=== PATIENT | female | born 1980 | race Caucasian/White ===

== ENCOUNTER 2020-04-18 11:20 | Outpatient (CLI) | payer BC | END 2020-04-18 11:21 | disposition home or self-care (01) | LOC: LAB 11:20 | PROVIDERS: ATTEND Obstetrics & Gynecology | DX: Z01.89 Encounter for other specified special examinations (principal); O09.521 Supervision of elderly multigravida, first trimester | CPT/HCPCS: 36415 ==

== ENCOUNTER 2020-08-02 11:38 | Outpatient (CLI) | payer BC ==
[2020-08-02 20:20] LABS: HCT - HEMATOCRIT 36.2 % (37.0-47.0); HGB - HEMOGLOBIN 12.5 g/dL (12.0-16.0); MEAN CORPUSCULAR HEMOGLOBIN 33.2 pg (27.0-31.0); MEAN CORPUSCULAR HGB CONC 34.5 g/dL (32.0-36.0); MEAN CORPUSCULAR VOLUME 96.3 fL (81.0-99.0); MEAN PLATELET VOLUME 10.7 fL (7.9-10.8); RED BLOOD COUNT 3.76 10^6/uL (4.20-5.40); RED CELL DISTRIBUTION WIDTH 12.6 % (12.0-15.0); WHITE BLOOD COUNT 7.3 x10^3/uL (4.8-10.8)
[2020-08-05 15:12] LABS: HEPATITIS C ANTIBODY NON-REACTIVE (NON-REACTIVE)
== END 2020-08-02 11:39 | disposition home or self-care (01) ==
LOC: LAB.S 11:38
PROVIDERS: ATTEND Obstetrics & Gynecology
DX: O09.90 Supervision of high risk pregnancy, unspecified, unspecified trimester (principal); Z13.21 Encounter for screening for nutritional disorder; Z36.89 Encounter for other specified antenatal screening
CPT/HCPCS: 36415; 81599; 82306; 82728; 82950; 85027; 86803

== ENCOUNTER 2020-08-07 08:13 | Outpatient (CLI) | payer BC ==
[2020-08-07 08:49] LABS: GTT GLUCOSE,FASTING 80 mg/dL (70-100)
== END 2020-08-07 08:14 | disposition home or self-care (01) ==
LOC: LAB 08:13
PROVIDERS: ATTEND Obstetrics & Gynecology
DX: O99.810 Abnormal glucose complicating pregnancy (principal)
CPT/HCPCS: 36415; 82951; 82952

== ENCOUNTER 2020-09-26 17:10 | Outpatient (CLI) | payer BC ==
--- NOTE | 2020-09-27 14:17 | Ultrasound Report ---
PROCEDURE: OB F/U or Repeat INDICATIONS: SUPERVISION OF HIGH RISK OUTSIDE/PRIOR DATING DATA: Last menstrual period (LMP): 01/12/2020. LMP-based estimated date of delivery (PEREZ): 10/18/2020. First dating scan (date and location): 03/12/2020. Estimated date of delivery (PEREZ) from first dating scan: 10/28/2020. The below data below was generated using the ultrasound PEREZ of 10/28/2020 TECHNIQUE: Real-time scanning was performed of the fetus, with image documentation and biometric measurements. COMPARISON: None available. Report from prior outside ultrasound from [facility] nter dated 05/21/2020. FINDINGS: General: A single living intrauterine gestation is present. Presentation: Vertex Placenta: Placental position is anterior, without previa. Amniotic fluid index: 14.6 cm, within normal limits for gestational age. Largest pocket measures 8.1 cm. heart rate: 157 beats per minute. Maternal cervical canal: Appears closed but is not well seen. biometrics: Biparietal diameter: 8.8 cm, 35 weeks 4 days Head circumference: 32.3 cm, 35 weeks 4 days single living intrauterine Abdominal circumference: 33.9 cm, 37 weeks 5 days Femur length: 6.4 cm, 33 weeks 1 day Estimated gestational age from initial scan: 35 weeks 3 days Composite gestational age from present scan: 35 weeks 5 days Estimated weight and percentile: 2894 g corresponding to the 73rd percentile Measurement variability in biometric dating: +/- 10 days from 12-20 weeks gestation, +/- 2 weeks from 20-30 weeks gestation, +/- 3 weeks at 30 weeks gestation or more. IMPRESSION: 1. Single living intrauterine in vertex position demonstrating appropriate interval growth with estimated weight at the 73rd percentile. Reviewed by: Car Cooley MD on 09/27/2020 2:16 PM PDT Approved by: Car Cooley MD on 09/27/2020 2:16 PM PDT Station ID: [id number]
== END 2020-09-26 17:11 | disposition home or self-care (01) ==
LOC: DI 17:10
PROVIDERS: ATTEND Obstetrics & Gynecology
DX: O09.90 Supervision of high risk pregnancy, unspecified, unspecified trimester (principal); Z3A.35 35 weeks gestation of pregnancy

== ENCOUNTER 2020-10-02 08:00 | Outpatient (CLI) | payer BC | END 2020-10-02 23:59 | disposition home or self-care (01) | LOC: LAB.WC 08:00 | PROVIDERS: ATTEND Obstetrics & Gynecology | DX: O09.90 Supervision of high risk pregnancy, unspecified, unspecified trimester (principal); Z36.85 Encounter for antenatal screening for Streptococcus B | CPT/HCPCS: 87797 ==

== ENCOUNTER 2020-10-21 21:47 | Inpatient (IN) | payer BC ==
[2020-10-21] MEDS ORDERED: SODIUM CHLORIDE FLUSH 0.9% 10 ML SYRINGE IVP PRN (21:53)
[2020-10-21] MEDS ORDERED: OXYTOCIN 10 UNIT/ML VIAL IM PRN (21:53)
[2020-10-21] MEDS ORDERED: fentaNYL 100 MCG/2 ML VIAL IVP PRN (21:53)
[2020-10-21] MEDS ORDERED: miSOPROStoL 200 MCG TABLET BC PRN (21:53)
[2020-10-21] MEDS ORDERED: LIDOCAINE-MPF 1% 30 ML VIAL ID PRN (21:53)
[2020-10-21] MEDS ORDERED: METHYLERGONOVINE 0.2 MG/ML VIAL IM PRN (21:53)
[2020-10-21] MEDS ORDERED: TRANEXAMIC ACID IN NACL 1,000 MG/100 ML BAG IV PRN (21:53)
[2020-10-21] MEDS ORDERED: CARBOPROST TROMETHAMINE 250 MCG/ML AMP IM PRN (21:53)
[2020-10-21] MEDS ORDERED: OXYTOCIN 10 UNIT/ML VIAL ONE (21:59)
[2020-10-21] MEDS ORDERED: LACTATED RINGERS 1,000 ML IV SCH ×2 (22:00→23:45)
[2020-10-21] MEDS ORDERED: OXYTOCIN/SODIUM CHLORIDE 500 ML IV ONE (22:00)
[2020-10-21 22:05] LABS: BASOPHILS % (AUTO) 0.6 %; EOSINOPHILS % (AUTO) 12.9 %; HCT - HEMATOCRIT 38.2 % (37.0-47.0); HGB - HEMOGLOBIN 13.3 g/dL (12.0-16.0); LYMPHOCYTES % (AUTO) 31.8 %; MEAN CORPUSCULAR HEMOGLOBIN 31.4 pg (27.0-31.0); MEAN CORPUSCULAR HGB CONC 34.8 g/dL (32.0-36.0); MEAN CORPUSCULAR VOLUME 90.3 fL (81.0-99.0); MEAN PLATELET VOLUME 11.4 fL (7.9-10.8); MONOCYTES % (AUTO) 7.7 %; NEUTROPHILS % (AUTO) 46.3 %; PLT - PLATELET COUNT 165 10^3/uL (130-450); RED BLOOD COUNT 4.23 10^6/uL (4.20-5.40); RED CELL DISTRIBUTION WIDTH 12.3 % (12.0-15.0); WHITE BLOOD COUNT 8.4 x10^3/uL (4.8-10.8)
[2020-10-21] MEDS ORDERED: AMPICILLIN 2 GM VIAL IV ONE (22:09)
[2020-10-21 22:10] LABS: SLIDE REVIEW? Indicated
[2020-10-21] MEDS: AMPICILLIN 2 GM in SODIUM CHLORIDE 0.9% MINIBAG 100 ML IV SCH (22:10)
[2020-10-21 22:11] LABS: ABNORMAL LYMPHS % (MANUAL) 0 %; BAND NEUTROPHILS % (MANUAL) 0 %
[2020-10-21] MEDS ORDERED: ROPIVACAINE 0.2% 200 MG/100 ML BAG EP ONE (22:24)
[2020-10-21 22:27] LABS: LYMPHOCYTES # (MANUAL) 2.3 10^3/uL (1.5-3.5); LYMPHOCYTES % (MANUAL) 27 %; MONOCYTES # (MANUAL) 0.6 10^3/uL (0.0-1.0); NEUTROPHILS # (MANUAL) 5.5 10^3/uL (1.5-6.6)
--- NOTE | 2020-10-21 22:27 | HISTORY & PHYSICAL EXAMINATION ---
History and Physical - History and Physical Identification: Patient is a 40-year-old she is G2, P1 her EDC is 28 October this makes her 39 weeks EGA Chief complaint: contractions History of present illness: patient states that roughly 1730 she developed strong uterine contractions. These progressively worse with time. She denies rupture of membranes did have a little bit of a bloody show. These are occurring at roughly 2-1/2-minute intervals. [facility]. Her course has been unremarkable with the exception of a 50 g Glucola which was 140 her 3-hour gtt. was 80/199/153/89. She is noted to be a positive rubella immune as well as group B strep positive.Regular visits and has not showed evidence of any hypertension during this . Past medical history is positive forNormal Pap smears PCOS. Surgical history: Colposcopy Allergies: None Current medications are those of vitamins as well as Lexapro. Social history patient works as [employer] in [employer]. Family history unremarkable Physical examination well-developed well-nourished female she is complaining of active labor at this time. Heart: Regular rate and rhythm Lungs: Clear without rales or wheezes Abdomen is gravid nontender intermittently going through contractions Cervical examination shows to be completely dilated completely effaced with a very bulging bag head is about a 0 station. Patient specifically requested not being ruptured as she would like to have an epidural if at all possible. Impression number one 40-year-old female at 39 weeks in active labor. History of group B strep positive Plan we will administer ampicillin. We will also obtain an epidural if at all possible. We will also as a expected vaginal delivery.
[2020-10-21 22:28] LABS: DIFFERENTIAL COMMENT MANUAL DIFFERENTIAL; PLATELET ESTIMATE, MANUAL NORMAL (130-450,000) (NORMAL); PLATELET MORPHOLOGY NORMAL APPEARANCE (NORMAL); RBC MORPHOLOGY (MULTIPLE) NORMAL APPEARANCE (NORMAL)
--- NOTE | 2020-10-21 22:46 | ANESTHESIA ---
Pre-Anesthesia VS, & Labs - Diagnosis active labor - Procedure labor epidural Vital Signs: Temp Pulse Resp BP Pulse Ox 97.7 C H 10/21/20 21:53 Height: 5 ft 6 in Weight (kg): 79.832 kg Body Mass Index: 28.4 BMI Classification: Overweight - NPO Other (not NPO) - Is Patient ?: Yes - Lab Results Current Lab Results: Laboratory Tests 10/21/20 21:55: Blood Type A POSITIVE, Antibody Screen NEGATIVE 10/21/20 21:50: WBC 8.4, RBC 4.23, Hgb 13.3, Hct 38.2, MCV 90.3, MCH 31.4 H, MCHC 34.8, RDW 12.3, Plt Count 165, MPV 11.4 H, Neut # (Auto) ROUTE SALESMAN [employer]IVER, Lymph # (Auto) ROU[employer] SALESMAN [employer]IVER, [place] # (Auto) ROUTE SALESMAN [employer]IVER, Eos # (Auto) ROUTE SALESM[employer]IVER, Baso # (Auto) ROUTE SALESM[employer]IVER, Absolute Nucleated RBC [employer], Total Counted 100, Band Neuts % (Manual) 0, Abnorm Lymph % (Manual) 0, Nucleated RBC % R[employer]TE SAL[employer], Neutrophils # (Manual) 5.5, Lymphocytes # (Manual) 2.3, Monocytes # (Manual) 0.6, Eosinophils # (Manual) 0.0, Basophils # (Manual) 0.0, Differential Comment MANUAL DIFFERENTIAL, Manual Slide Review Indicated, Platelet Estimate NORMAL (130-450,000), Platelet Morphology NORMAL APPEARANCE, RBC Morph Micro Appear NORMAL APPEARANCE Fish Bones: 10/21/20 21:50 Home Medications and Allergies Active Medications Carboprost Tromethamine (Carboprost Tromethamine 250 Mcg/Ml Amp) 250 mcg IM Q15M PRN PRN Reason: Step 4: Hemorrhage protocol Stop: 10/26/20 21:54 Fentanyl (Fentanyl 100 Mcg/2 Ml Vial) 50 mcg IVP Q1H PRN PRN Reason: PAIN Oxytocin/Sodium Chloride (Pitocin/Sodium Chloride) 500 mls @ 999 mls/hr IV PRN PRN; Protocol PRN Reason: POST- HEMORR PREVENTION Stop: 10/26/20 21:54 Tranexamic Acid (Tranexamic 1,000 Mg/100ml-Nacl) 1,000 mg in 100 mls @ 600 mls/hr IV .ONCE PRN PRN Reason: EBL >1200mL and within 3hr Stop: 10/26/20 21:54 Lactated Ringer's (Lr) 1,000 mls @ 150 mls/hr IV .Q6H40M [facility] Last Admin: 10/21/20 22:10 Dose: 150 mls/hr Documented by: Ampicillin Sodium 2 gm/ Sodium (Chloride) 100 mls @ 100 mls/hr IV Q6HR [facility] Last Admin: 10/21/20 22:10 Dose: 100 mls/hr Documented by: Lidocaine HCl (Lidocaine-Mpf 1% 30 Ml Vial) 30 ml ID .ONCE PRN PRN Reason: PERINEAL REPAIR Stop: 10/26/20 21:54 Methylergonovine Maleate (Methylergonovine 0.2 Mg/Ml Vial) 0.2 mg IM .ONCE PRN PRN Reason: Step 2: Hemorrhage protocol Stop: 10/26/20 21:54 Misoprostol (Misoprostol 200 Mcg Tablet) 800 mcg BC .ONCE PRN PRN Reason: Step 3: Hemorrhage protocol Stop: 10/26/20 21:54 Oxytocin (Oxytocin 10 Unit/Ml Vial) 10 unit IM .ONCE PRN PRN Reason: Step one: If no IV access Stop: 10/26/20 21:54 Sodium Chloride (Sodium Chloride Flush 0.9% 10 Ml Syringe) 10 ml IVP PRN PRN PRN Reason: NEEDED PER PROVIDER ORDERS Sodium Chloride (Sodium Chloride Flush 0.9% 10 Ml Syringe) 10 ml IVP 0100,0900,1700 [facility] Anes History & Medical History - Anesthetic History Anesthesia Complications: reports: No previous complications Family history of Anesthesia Complications: Denies Family history of Malignant Hyperthermia: Denies - Medical History Smoking Status: Never smoker Exam General: Alert, Oriented x3, Cooperative Dental: WNL Mouth Openin Fingerbreadth Neck Mobility: Normal Mallampati classification: I Thyromental Distance: 4-6 cm Plan Anesthesia Type: Epidural Consent for Procedure(s) Verified and Reviewed: Yes Code Status: Attempt Resuscitation ASA classification: 2-Mild systemic disease Is this case an emergency?: No
[2020-10-21] MEDS: OXYTOCIN/SODIUM CHLORIDE 500 ML IV PRN (23:15)
--- NOTE | 2020-10-21 23:22 | DELIVERY NOTE ---
Delivery Note - Labor Labor: positive: Spontaneous - Delivery Method Delivery Method: positive: Spontaneous vaginal delivery - Presentation Presentation: positive: Vertex, NEETA - left occiput anterior - Nuchal Cord Nuchal Cord: positive: None - Anesthetic Anesthetic Type: - Amniotic Fluid Description Amniotic Fluid Description: positive: Clear (SECOND STAGE MEC) - Episiotomy Type Episiotomy Type: positive: None - Laceration Laceration: positive: 1st degree, Labial (There up near the labia 8 mm) - Delivery Outcome Delivery Outcome: positive: Livebirth - : positive: Placed in direct skin contact with mother, Suctioned, Stimulated, Warmed Carbon sex: positive: Female - Cord Cord: positive: 3 vessels - Placenta Placenta: positive: Intact, Spontaneous - Delivery Comments (Free Text/Narrative) Delivery Comments (Free Text/Narrative): Upon arrival to labor and delivery patient was noted to be roughly 8 to 9 cm. She reached complete very soon thereafter. She was very insistent on having an epidural. So the membranes were not ruptured. She spontaneously ruptured at 2024 clear amniotic fluid was seen. Prior to this she received 2 g of ampicillin IV. At this point she was having an epidural placed but was noted to be bearing down and the head was noted to be on the perineum. The epidural was ceased. She started pushing at 2229 and at 2237 delivered a live female infant Apgars 8 and 9 left occiput anterior. The placenta followed at 2250 was inspected and noted to be intact. This was augmented with Pitocin. The perineum was inspected with the small left labial laceration noted patient declined a repair. There was some difficulty with the uterus alma down and since the IV at this point was not working well. She received 10 units of Pitocin in the right thigh. The uterus still had problems with bleeding so she received 0.2 mg of Methergine in the left thigh. The bleeding at this point stopped and the IV started to function well. The perineum was inspected with the aforementioned findings. At this point there is no evidence of an active bleeding. Sponge and needle counts were correct. Patient and baby tolerated delivery well.
[2020-10-21] MEDS ORDERED: WITCH HAZEL/GLYCERIN 1 PAD TOP PRN (23:26)
[2020-10-21] MEDS ORDERED: HYDROCORTISONE 1% CREAM 28 GM TUBE PR PRN (23:26)
[2020-10-21] MEDS ORDERED: oxyCODONE 5 MG TABLET PO PRN (23:26)
[2020-10-21] MEDS ORDERED: diphenhydrAMINE 25 MG CAPSULE PO PRN (23:26)
[2020-10-21] MEDS ORDERED: ONDANSETRON 4 MG/2 ML VIAL IVP PRN (23:26)
[2020-10-21] MEDS: ACETAMINOPHEN 500 MG TABLET PO SCH (23:44)
[2020-10-22] MEDS ORDERED: AMPICILLIN 2 GM in SODIUM CHLORIDE 0.9% MINIBAG 100 ML IV SCH ×2
[2020-10-22] MEDS: OXYTOCIN/SODIUM CHLORIDE 500 ML IV PRN (00:28)
[2020-10-22] MEDS: DOCUSATE SODIUM 100 MG CAPSULE PO SCH ×2 (09:05→22:48)
--- NOTE | 2020-10-22 09:57 | PROVIDER PROGRESS NOTE ---
Subjective - Prog Note Date Prog Note Date: 10/22/20 Prog Note Time: 09:55 - Subjective Pt reports feeling: Improved (Pain 05/22. Pt notes good pain control. Breast feeding.) Objective - Vital Signs/Intake & Output Reviewed Vital Signs: Yes Vital Signs: Vital Signs x48h Temp Pulse Resp BP Pulse Ox 10/22/20 09:05 36.6 C 45 L 18 119/76 100 10/22/20 02:00 36.9 C 64 16 120/65 100 Intake & Output: Intake & Output 10/19/20 10/20/20 10/21/20 10/22/20 23:59 23:59 23:59 23:59 Intake Total 100 1500 Output Total 950 Balance 100 550 - Objective General Appearance: positive: No acute distress, Alert Abdomen: positive: Non-tender, Mass (U-2) Extremities: negative: Calf tenderness, Krzysztof's sign/cords - Lab Results Fish Bones: 10/21/20 21:50 Other Labs: Lab Results x24hrs 10/21/20 10/21/20 10/21/20 Range/Units 21:55 21:50 21:50 WBC 8.4 (4.8-10.8) x10^3/uL RBC 4.23 (4.20-5.40) 10^6/uL Hgb 13.3 (12.0-16.0) g/dL Hct 38.2 (37.0-47.0) % MCV 90.3 (81.0-99.0) fL MCH 31.4 H (27.0-31.0) pg MCHC 34.8 (32.0-36.0) g/dL RDW 12.3 (12.0-15.0) % Plt Count 165 (130-450) 10^3/uL MPV 11.4 H (7.9-10.8) fL Neut # (Auto) SALES EXEC Lymph # (Auto) SALES EXEC [place] # (Auto) SALES EXEC Eos # (Auto) SALES EXEC Baso # (Auto) SALES EXEC Absolute Nucleated RBC SALES EXEC Total Counted 100 Band Neuts % (Manual) 0 (0 - 10) % Abnorm Lymph % (Manual) 0 % Nucleated RBC % SALES EXEC Neutrophils # (Manual) 5.5 (1.5-6.6) 10^3/uL Lymphocytes # (Manual) 2.3 (1.5-3.5) 10^3/uL Monocytes # (Manual) 0.6 (0.0-1.0) 10^3/uL Eosinophils # (Manual) 0.0 (0-0.7) 10^3/uL Basophils # (Manual) 0.0 (0-0.1) 10^3/uL Differential Comment MANUAL DIFFERENTIAL Manual Slide Review Indicated Platelet Estimate NORMAL (130-450,000) (NORMAL) Platelet Morphology NORMAL APPEARANCE (NORMAL) RBC Morph Micro Appear NORMAL APPEARANCE (NORMAL) Blood Type A POSITIVE Blood Type Recheck A POSITIVE Antibody Screen NEGATIVE Assessment/Plan - Problem List (1) (spontaneous vaginal delivery) Impression: recovering well.
[2020-10-22] MEDS: IBUPROFEN 800 MG TABLET PO SCH (19:56)
[2020-10-22] MEDS: AMPICILLIN 2 GM in SODIUM CHLORIDE 0.9% MINIBAG 100 ML IV SCH ×2 (19:57→19:58)
[2020-10-22] MEDS: ACETAMINOPHEN 500 MG TABLET PO SCH (20:01)
--- NOTE | 2020-10-23 05:26 | PROVIDER PROGRESS NOTE ---
Subjective - Prog Note Date Prog Note Date: 10/23/20 Prog Note Time: 05:24 - Subjective Subjective: Patient overall has been doing well. Up and ambulating, tolerating po, pain well managed. Having some anxiety surrounding GBS status/observation. Objective - Vital Signs/Intake & Output Reviewed Vital Signs: Yes Vital Signs: Vital Signs x48h Temp Pulse Resp BP Pulse Ox 10/23/20 03:22 98.4 F 55 L 19 124/74 100 10/22/20 22:45 98.2 F 72 18 109/68 99 Intake & Output: Intake & Output 10/20/20 10/21/20 10/22/20 10/23/20 23:59 23:59 23:59 23:59 Intake Total 100 2060 240 Output Total 950 Balance 100 1110 240 - Objective General Appearance: positive: No acute distress Respiratory: positive: No respiratory distress Cardiovascular: positive: Other (RR) Neurologic/Psychiatric: positive: Oriented x3 - Lab Results Fish Bones: 10/21/20 21:50 Other Labs: Lab Results x24hrs 10/21/20 Range/Units 21:50 Blood Type Recheck A POSITIVE Assessment/Plan - Problem List (1) (spontaneous vaginal delivery) Impression: PPD#2: Late delivery on 10/21/20 -Doing well -Inpatient for 48 hours of infant observation -Struggling a little with anxiety this am -Will revisit later this am
[2020-10-23] MEDS: IBUPROFEN 800 MG TABLET PO SCH ×6 (09:07→18:56)
[2020-10-23] MEDS: DOCUSATE SODIUM 100 MG CAPSULE PO SCH (09:08)
[2020-10-23] MEDS: ACETAMINOPHEN 500 MG TABLET PO SCH ×2 (18:54→18:55)
[2020-10-23] MEDS: SODIUM CHLORIDE FLUSH 0.9% 10 ML SYRINGE IVP SCH ×2 (18:57→18:58)
[2020-10-24] MEDS: DOCUSATE SODIUM 100 MG CAPSULE PO SCH (07:16)
[2020-10-24] MEDS: IBUPROFEN 800 MG TABLET PO SCH (07:16)
[2020-10-24 09:31] VITALS: BP 117/73
[2020-10-24] MEDS: ACETAMINOPHEN 500 MG TABLET PO SCH (10:47)
--- NOTE | 2020-10-24 10:50 | Discharge Plan ---
Discharge Plan Problem Reviewed?: Yes Disposition: Home, Self Care Condition: Good Prescriptions: Acetaminophen [Acetaminophen Extra Strength] 1,000 mg PO Q8H PRN #60 tablet PRN Reason: Pain Docusate Sodium 100Mg Capsule [Colace 100Mg Capsule] 100 - 200 mg PO BID PRN #60 cap PRN Reason: Constipation Ibuprofen [Motrin] 600 mg PO Q6H PRN #60 tab PRN Reason: Pain Diet: Regular Activity Restrictions: Additional Comments (Nothing in the vagina for 6 weeks: No intercourse, tampons, douching Call for: -Fever greater than 100.5 - Pain that does not improve with pain medication -Heavy bleeding in which you are soaking a pad an hour for 2 hours in a row No tub baths or hot tubs for 4 weeks) Additional Instructions or Follow Up instructions: Ibuprofen 600 mg by mouth every 6 hours as needed for pain Acetaminophen 500-1000 mg by mouth every 8 hours as needed for pain Docusate 100-200 mg by mouth twice a day as needed for constipation No Smoking: If you smoke, Please STOP! Call for help. Follow-up with: Irena Bernard MD [Provider Admit Priv/Credential] -
--- NOTE | 2020-10-24 10:51 | DISCHARGE SUMMARY ---
Discharge Summary Admit Date: 10/21/20 Discharge Date: 10/24/20 Discharging Provider: Marco Antonio Condition at Discharge: Good Discharge Disposition: 01 Home, Self Care - DIAGNOSES Admission Diagnoses: IUP at 39+0 wga GBs positive Labor Discharge Diagnoses with Status of Each Condition: Same and delivery of term gestation. - HPI History of Present Illness: Patient is a 40-year-old G2, P1 with PEREZ 28 October admitted at 39 weeks EGA in advanced labor. Started contractions at roughly 1730. Denied rupture of membranes did have a little bit of a bloody show. Her course has been unremarkable with the exception of a 50 g Glucola which was 140 her 3-hour gtt. was 80/199/153/89. She is noted to be a positive rubella immune as well as group B strep positive. Regular visits and has not showed evidence of any hypertension during this . - HOSPITAL COURSE Hospital Course: Patient was admitted in labor at 39 wga. Initial SVE was 8-9 cm/complete/BBOW. Prior to this she received 2 g of ampicillin IV 2g IV administered at admit for GBS prophylaxis. Desired epidural. During placements, she had spontaneous rupture of membranes at 2024; clear amniotic fluid was seen. The epidural was not completed as started to deliver. She started pushing at 2230 and at 2238 delivered a live female Apgars 8 and 9 form left occiput anterior position. The placenta followed at 2251 was inspected and noted to be intact. The perineum was inspected with the small left labial laceration noted patient declined a repair. There was some difficulty with the uterus alma down and since the IV at this point was not working well. She received 10 units of Pitocin in the right thigh. The uterus still had problems with bleeding so she received 0.2 mg of Methergine in the left thigh. The bleeding at this point stopped and the IV started to function well. Good hemostasis noted. Sponge and needle counts were correct. Patient and baby tolerated delivery well. course was uncomplicated. Infant required 48 hours of observation given GBS status. Given late pm delivery, patient and baby were discharged on PPD#3. Routine discharge instructions were given. Rh positive. - ALLERGIES Allergies/Adverse Reactions: Allergies Allergy/AdvReac Type Severity Reaction Status Date / Time No Known Drug Allergies Allergy Verified 10/21/20 23:21 - MEDICATIONS Home Medications: Ambulatory Orders Medication Instructions Recorded Confirmed Acetaminophen [Acetaminophen Extra 1,000 mg PO Q8H PRN #60 tablet 10/23/20 Strength] Docusate Sodium 100Mg Capsule 100 - 200 mg PO BID PRN #60 cap 10/23/20 [Colace 100Mg Capsule] Ibuprofen [Motrin] 600 mg PO Q6H PRN #60 tab 10/23/20 - PHYSICAL EXAM AT DISCHARGE General Appearance: positive: No acute distress Eyes Bilateral: positive: Normal inspection Neck: positive: Nml inspection Respiratory: positive: No respiratory distress Cardiovascular: positive: Other (RR) Abdomen: positive: Non-tender, No distention, Other (FF belowumbi) Skin: positive: Color nml, No rash, Warm, Dry Extremities: positive: Non-tender, No pedal edema Neurologic/Psychiatric: positive: Oriented x3 - LABS Result Diagrams: 10/21/20 21:50 - FOLLOW UP Follow Up: [address] Bernard - TIME SPENT Time Spent in Discharge (Minutes): 30
== END 2020-10-24 11:45 | disposition home or self-care (01) | DRG 807 ==
LOC: WFO 21:47 → FBP 21:50 → WFO 21:52 → FBP 21:53
PROVIDERS: ADMIT Obstetrics & Gynecology; ATTEND Obstetrics & Gynecology
PROC: 10E0XZZ Delivery of Products of Conception, External Approach (ICD-10-PCS; principal; 2020-10-21)
DX: O99.824 Streptococcus B carrier state complicating childbirth (principal); Z37.0 Single live birth; O70.0 First degree perineal laceration during delivery; O72.0 Third-stage hemorrhage; Z3A.39 39 weeks gestation of pregnancy; O99.345 Other mental disorders complicating the puerperium; F41.9 Anxiety disorder, unspecified
CPT/HCPCS: 36415; 85025; 86850; 86900; 86901; A9270; J2210; J7120

== ENCOUNTER 2021-02-12 15:32 | Emergency (ER) | payer BC ==
[2021-02-12 15:56] VITALS: BP 126/90
--- NOTE | 2021-02-12 16:22 | ED Physician Documentation ---
PD HPI MHE - Stated complaint Stated Complaint: PSYCHOSIS - Chief complaint Chief Complaint: MHE - History obtained from History obtained from: Patient - History of Present Illness Primary symptom: No: Suicidal ideation, Suicide attempt, Self harm - cut, Self harm - OD, Self harm - other, Homicidal ideation, Psychosis, Depression, Manic, Anxiety, Aggressive behavior Pain level max: 0 Pain level now: 0 Contributing factors: No: Family, Sig other, Work, School, Money, Legal, Substance abuse - ETOH, Substance abuse - drugs, Off meds - Additional information Additional information: Patient is a 40-year-old female who presents to the emergency department stating that she was talking to a therapist today who told her to come to the emergency department to "get medication for the manic phase". They also told her to tell us that she has psychosis. The patient states she is not homicidal or suicidal. She states she does not have any auditory or visual hallucinations. 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 She does not have a primary care provider or psychiatrist. She does not want to be hospitalized. Review of Systems Ten Systems: 10 systems reviewed and negative Constitutional: denies: Fever, Chills Ears: denies: Ear pain Nose: denies: Rhinorrhea / runny nose, Congestion Throat: denies: Sore throat Cardiac: denies: Chest pain / pressure Respiratory: denies: Dyspnea, Cough GI: denies: Abdominal Pain, Nausea, Vomiting, Diarrhea : denies: Now EGA Skin: denies: Rash Musculoskeletal: denies: Neck pain, Back pain Neurologic: denies: Headache Psychiatric: denies: Depressed, Suicidal, Homicidal, Hallucinations, Delusions, Anxiety, Insomnia PD PAST MEDICAL HISTORY - Past Medical History Past Medical History: Yes Psych: Bipolar disorder - Past Surgical History Past Surgical History: No - Present Medications Home Medications: Ambulatory Orders Medication Instructions Recorded Confirmed No Known Home Medications 02/12/21 02/12/21 - Allergies Allergies/Adverse Reactions: Allergies Allergy/AdvReac Type Severity Reaction Status Date / Time No Known Drug Allergies Allergy Verified 02/12/21 15:56 - Social History Does the pt smoke?: No Smoking Status: Never smoker PD ED PE NORMAL - Vitals Vital signs reviewed: Yes - General General: Alert and oriented X 3, No acute distress, Well developed/nourished - HEENT HEENT: Atraumatic, PERRL, Moist mucous membranes - Neck Neck: Supple, no meningeal sign - Cardiac Cardiac: RRR, Strong equal pulses - Respiratory Respiratory: No respiratory distress, Clear bilaterally - Abdomen Abdomen: Soft, Non tender, Non distended - Derm Derm: Warm and dry - Extremities Extremities: No edema - Neuro Neuro: Alert and oriented X 3 - Psych Psych: Normal mood, Normal affect Results - Vitals Vitals: Vital Signs - 24 hr 02/12/21 15:52 Temperature 36.4 C L Heart Rate 86 Respiratory 16 Rate Blood Pressure 126/90 H O2 Saturation 100 Oxygen O2 Source Room air PD MEDICAL DECISION MAKING - ED course Complexity details: considered differential, d/w patient ED course: Social work was consulted. Resources given to the patient. She is not acutely psychotic. Does not meet criteria for inpatient admission. Patient does not want to be admitted. We will have her follow-up with a local psychiatrist for further care and potential medication. Patient counseled regarding signs and symptoms for which I believe and urgent re-evaluation would be necessary. Patient with good understanding of and agreement to plan and is comfortable going home at this time This document was made in part using voice recognition software. While efforts are made to proofread this document, sound alike and grammatical errors may occur. Departure - Departure Disposition: 01 Home, Self Care Clinical Impression: Bipolar 1 disorder Condition: Good Instructions: ED Manic Depression Follow-Up: Irena Bernard MD [Provider Admit Priv/Credential] - [facility] [Provider Group] Comments: Please follow-up as directed by social work today. It is important that you discuss with your doctor medications for bipolar disorder. They may want to change you to a mood stabilizer such as Depakote. This may require a tapering of your current medications in order to exchange administrator to a new medication. Crisis Line and is available to talk to someone [email or web address] is also available to chat with someone online if you prefer. There are also many resources on this website and apps for your phone to help with your mental health You can also text the word START to [phone] to chat with someome via text. Discharge Date/Time: 02/12/21 17:57
== END 2021-02-12 17:57 | disposition home or self-care (01) ==
LOC: ED 15:32
DX: F31.10 Bipolar disorder, current episode manic without psychotic features, unspecified (principal)
CPT/HCPCS: 99282; 99283

== ENCOUNTER 2021-08-01 09:53 | Outpatient (CLI) | payer BC ==
[2021-08-01 15:30] LABS: T4 (THYROXINE) 6.95 ug/dL (6.09-12.23)
[2021-08-01 15:33] LABS: THYROID STIMULATING HORMONE 1.01 uIU/mL (0.34-5.60)
[2021-08-01 15:35] LABS: FREE T3 2.88 pg/mL (2.5-3.9); FREE T4 (FREE THYROXINE) 0.98 ng/dL (0.58-1.64)
== END 2021-08-01 09:54 | disposition home or self-care (01) ==
LOC: LAB.S 09:53
PROVIDERS: ATTEND Registered Nurse
DX: F31.32 Bipolar disorder, current episode depressed, moderate (principal); F31.73 Bipolar disorder, in partial remission, most recent episode manic; F53.0 Postpartum depression
CPT/HCPCS: 36415; 84436; 84439; 84443; 84480; 84481; 84482

== ENCOUNTER 2021-08-11 12:17 | Outpatient (CLI) | payer BC ==
[2021-08-11 15:23] LABS: T4 (THYROXINE) 5.31 ug/dL (6.09-12.23)
[2021-08-11 15:25] LABS: THYROID STIMULATING HORMONE 0.8 uIU/mL (0.34-5.60)
[2021-08-11 15:27] LABS: FREE T3 3.07 pg/mL (2.5-3.9)
[2021-08-11 15:32] LABS: FERRITIN 26.9 ng/mL (11.0-306.8)
[2021-08-11 15:34] LABS: ALBUMIN 4.5 g/dL (3.2-5.5); ALBUMIN/GLOBULIN RATIO 1.8 (1.0-2.2); BILIRUBIN,TOTAL 2.3 mg/dL (0.2-1.0); CREATININE 0.7 mg/dL (0.4-1.0); POTASSIUM 3.9 mmol/L (3.5-5.0)
[2021-08-11 23:08] LABS: THYROID PEROXIDASE (TPO) AB <8 IU/mL (0-34)
[2021-08-12 07:07] LABS: HOMOCYST(E)INE 6.5 umol/L (0.0-14.5)
[2021-08-13 19:07] LABS: THYROGLOBULIN ANTIBODY <1.0 IU/mL (0.0-0.9)
== END 2021-08-11 12:18 | disposition home or self-care (01) ==
LOC: LAB.S 12:17
PROVIDERS: ATTEND Registered Nurse
DX: F31.32 Bipolar disorder, current episode depressed, moderate (principal); F53.0 Postpartum depression
CPT/HCPCS: 36415; 80053; 81291; 81599; 82728; 83090; 83540; 84436; 84443; 84466; 84480; 84481; 86376; 86800

== ENCOUNTER 2022-02-13 10:42 | Outpatient (CLI) | payer BC ==
[2022-02-13 15:29] LABS: ALBUMIN 4.4 g/dL (3.2-5.5); BILIRUBIN,TOTAL 1.7 mg/dL (0.2-1.0); CALCIUM 9.3 mg/dL (8.5-10.3); CREATININE 0.9 mg/dL (0.4-1.0); POTASSIUM 4.1 mmol/L (3.5-5.0); TOTAL PROTEIN 6.6 g/dL (6.7-8.2)
[2022-02-13 15:44] LABS: THYROID STIMULATING HORMONE 0.81 uIU/mL (0.34-5.60)
[2022-02-13 15:46] LABS: FREE T3 3.05 pg/mL (2.5-3.9)
[2022-02-13 15:49] LABS: FREE T4 (FREE THYROXINE) 0.86 ng/dL (0.58-1.64)
[2022-02-13 15:51] LABS: FERRITIN 34.5 ng/mL (11.0-306.8)
== END 2022-02-13 10:43 | disposition home or self-care (01) ==
LOC: LAB.S 10:42
PROVIDERS: ATTEND Registered Nurse
DX: F31.32 Bipolar disorder, current episode depressed, moderate (principal)
CPT/HCPCS: 36415; 80053; 82728; 84439; 84443; 84481

== ENCOUNTER 2022-05-07 11:34 | Outpatient (CLI) | payer BC ==
[2022-05-07 15:22] LABS: ALBUMIN 3.9 g/dL (3.2-5.5); ALBUMIN/GLOBULIN RATIO 1.6 (1.0-2.2); BILIRUBIN,TOTAL 2.1 mg/dL (0.2-1.0); CALCIUM 8.9 mg/dL (8.5-10.3); CREATININE 1.1 mg/dL (0.4-1.0); POTASSIUM 4.2 mmol/L (3.5-5.0); TOTAL PROTEIN 6.4 g/dL (6.7-8.2)
== END 2022-05-07 11:35 | disposition home or self-care (01) ==
LOC: LAB.S 11:34
PROVIDERS: ATTEND Registered Nurse
DX: F31.32 Bipolar disorder, current episode depressed, moderate (principal)
CPT/HCPCS: 36415; 80053; 82728

== ENCOUNTER 2022-06-16 12:45 | Outpatient (CLI) | payer BC ==
[2022-06-16 15:09] LABS: ALBUMIN 4.4 g/dL (3.2-5.5); ALBUMIN/GLOBULIN RATIO 1.8 (1.0-2.2); BILIRUBIN,TOTAL 1.2 mg/dL (0.2-1.0); CALCIUM 9.1 mg/dL (8.5-10.3); CREATININE 0.9 mg/dL (0.4-1.0); POTASSIUM 4.1 mmol/L (3.5-5.0); TOTAL PROTEIN 6.8 g/dL (6.7-8.2)
== END 2022-06-16 12:46 | disposition home or self-care (01) ==
LOC: LAB.S 12:45
PROVIDERS: ATTEND Registered Nurse
DX: F31.32 Bipolar disorder, current episode depressed, moderate (principal); F31.73 Bipolar disorder, in partial remission, most recent episode manic; F53.0 Postpartum depression
CPT/HCPCS: 36415; 80053

== ENCOUNTER 2022-08-17 09:29 | Outpatient (CLI) | payer BC ==
[~2022-08-17 09:29] MED LIST: GADOBUTROL 7.5 MMOL/7.5 ML VIAL ONE
--- NOTE | 2022-08-17 13:11 | MRI Report ---
PROCEDURE: ANGIO HEAD WO INDICATIONS: HEADACHE, MIGRAINE TECHNIQUE: Noncontrast axial 3-D [id number] MR angiogram, with 3-dimensional maximum intensity projection (M IP) reformats of the internal carotid arteries and posterior circulation then performed. COMPARISON: Correlation is made with the accompanying brain MRI. FINDINGS: Image quality: Diagnostic. Anterior circulation: Intracranial internal carotid arteries demonstrate normal size and intralumina l flow signal. The flow within the paired anterior cerebral arteries is normal and symmetric. The f low within the middle cerebral arteries is normal and symmetric. The anterior communicating artery i s seen. No stenoses, occlusions, or aneurysms. Posterior circulation: Visualized portions of the vertebral arteries demonstrate normal caliber, and join to form a normal appearing basilar artery. The flow within the posterior cerebral arteries is normal and symmetric. No stenoses, occlusions, or aneurysms. The included venous radiology transporter images are within normal limits. IMPRESSION: Normal brain MR angiogram. No aneurysms. Reviewed by: Timothy Moreno MD on 08/17/2022 12:10 PM [facility] Approved by: Timothy Moreno MD on 08/17/2022 12:10 PM [facility] Station ID: [id number]
--- NOTE | 2022-08-17 13:12 | MRI Report ---
PROCEDURE: BRAIN W/WO INDICATIONS: HEADACHE, MIGRAINE CONTRAST: gadavist 6.4ml TECHNIQUE: Noncontrast axial T1 spin echo, axial T2 fast spin echo, sagittal and axial FLAIR, coronal T2 fast sp in echo, axial gradient echo, axial diffusion and ADC through the brain. After the administration of contrast, axial and coronal T1 spin echo with fat saturation through the brain. COMPARISON: Correlation is made with the accompanying brain MR angiogram. FINDINGS: Image quality: Diagnostic. CSF spaces: Basal cisterns are patent. No extra-axial fluid collections. Ventricles are normal in size and shape. Brain: No midline shift. No intracranial bleeds or masses. No abnormal intracranial enhancement. There is cerebral volume loss for age. There is periventricular white matter chronic small vessel is chemic change. The brainstem appears normal. Diffusion-weighted images demonstrate no acute ischemi c insults. No chronic ischemic insults. Normal intravascular flow voids are present. Skull and face: Calvarial marrow is normal in signal. Orbits appear normal. Sinuses: Moderate mucosal thickening can be seen within the maxillary sinuses and the sphenoid sinuse s. Mild mucosal thickening is seen within the ethmoid air cells. There is a mild amount of fluid seen within the left mastoid air cells. IMPRESSION: A cause of headache cannot be seen on these images. No masses or abnormal enhancement can be seen. Additional findings: Paranasal sinus disease. Reviewed by: Timothy Moreno MD on 08/17/2022 12:11 PM HENRY Approved by: Timothy Moreno MD on 08/17/2022 12:11 PM FLALYSA Station ID: [id number]
[2022-08-17] MEDS: GADOBUTROL 7.5 MMOL/7.5 ML VIAL IVP ONE (15:01)
== END 2022-08-17 09:30 | disposition home or self-care (01) ==
LOC: DI 09:29
PROVIDERS: ATTEND Psychiatry & Neurology Neurology
DX: G43.009 Migraine without aura, not intractable, without status migrainosus (principal)
CPT/HCPCS: 70544; 70553; A9585

== ENCOUNTER 2023-01-07 14:10 | Outpatient (CLI) | payer BC ==
[2023-01-07 14:41] LABS: CHOL/HDL RATIO 2.6 (<4.4); CHOLESTEROL 151 mg/dL; HDL CHOLESTEROL 58 mg/dL; LDL CHOLESTEROL,CALCULATED 62 mg/dL; LDL/HDL RATIO 1.1 (<4.4); TRIGLYCERIDES 153 mg/dL (48-352); VLDL CHOLESTEROL 31 mg/dL
[2023-01-07 20:21] LABS: ESTIMATED AVERAGE GLUCOSE 91 mg/dL (70-100); HEMOGLOBIN A1c% 4.8 % (4.27-6.07)
[2023-01-08 07:10] LABS: RPR Non Reactive (Non Reactive)
[2023-01-09 01:08] LABS: HIV SCREEN 4TH GENERATION Non Reactive (Non Reactive)
[2023-01-09 06:10] LABS: HSV 1 IGG TYPE SPEC 4.62 index (0.00-0.90)
== END 2023-01-07 14:11 | disposition home or self-care (01) ==
LOC: LAB 14:10
PROVIDERS: ATTEND Obstetrics & Gynecology
DX: O99.810 Abnormal glucose complicating pregnancy (principal); Z71.89 Other specified counseling
CPT/HCPCS: 36415; 80061; 83036; 83721; 86592; 86695; 86696; 87389

== ENCOUNTER 2023-02-01 11:36 | Outpatient (CLI) | payer BC ==
[2023-02-01 14:46] LABS: BILIRUBIN,URINE NEGATIVE (NEGATIVE); GLUCOSE, URINE (UA) NEGATIVE (NEGATIVE); KETONES,URINE (UA) NEGATIVE (NEGATIVE); LEUKOCYTE ESTERASE, URINE NEGATIVE (NEGATIVE); NITRITE,URINE NEGATIVE (NEGATIVE); OCCULT BLOOD,URINE NEGATIVE (NEGATIVE); PH,URINE 6.5 PH (5.0-7.5); PROTEIN,URINE NEGATIVE (NEGATIVE); UROBILINOGEN,URINE 0.2 (NORMAL) E.U./dL (NORMAL)
[2023-02-01 14:52] LABS: CLARITY,URINE CLEAR (CLEAR); RBC,URINE None Seen /HPF (0-5); SQUAMOUS EPITHELIAL CELL,UR RARE Squamous (<= Few); WBC,URINE 0-3 /HPF (0-5)
[2023-02-01 14:53] LABS: BACTERIA,URINE Rare /HPF (None Seen)
[2023-02-01 14:54] LABS: ALBUMIN 4.7 g/dL (3.2-5.5); CALCIUM 9.5 mg/dL (8.5-10.3); CREATININE 0.9 mg/dL (0.6-1.3); PHOSPHORUS 3.1 mg/dL (2.5-5.0); POTASSIUM 3.9 mmol/L (3.5-4.5)
[2023-02-01 15:03] LABS: CREATININE,URINE 16.9 mg/dL; TOTAL PROTEIN,URINE TIMED < 4 mg/dL
== END 2023-02-01 11:37 | disposition home or self-care (01) ==
LOC: LAB.S 11:36
PROVIDERS: ATTEND Internal Medicine Nephrology
DX: N17.9 Acute kidney failure, unspecified (principal)
CPT/HCPCS: 36415; 80069; 81001; 82570; 84156; 87086

== ENCOUNTER 2023-02-22 09:52 | Outpatient (CLI) | payer BC ==
--- NOTE | 2023-02-23 09:13 | Mammography Report ---
BILATERAL DIGITAL SCREENING MAMMOGRAM 3D/2D WITH EXAGGERATED CC: 02/22/2023 CLINICAL: Routine screening. Baseline exam. No prior exams were available for comparison. Both breasts are extremely dense, which lowers the sensitivity of mammography (category d />75% gland ular tissue). No significant masses, calcifications, or other findings are seen in either breast. IMPRESSION: NEGATIVE There is no mammographic evidence of malignancy. A 1 year screening mammogram is recommended. Based on Tyrer-Cuzick model (a risk assessment model), the patient's lifetime risk is 21.7% and her 1 0 year risk is 2.8%. If a patient has an elevated risk, a more comprehensive evaluation should be con sidered and/or a referral to a genetic counselor. The [place] [employer], [employer] [employer], and NCCN Guidelines advise the consideration of Breast MRI as an adjunct to screening mammog victor manuel in patients whose "Lifetime risk to develop breast cancer" is 20% or higher. This exam was interpreted at Station ID: [id number]. NOTE: For mammograms, a report in lay terms will be sent to the patient. Approximately 15% of breast malignancies will not be visualized mammographically. In the management of a palpable breast mass, a negative mammogram must not discourage biopsy of a clinically suspicious lesion. Electronically Signed By: Carrie duran/kelvin:02/22/2023 13:53:51 letter sent: No_Letter ACR BI-RADS Category 1: Negative 3341F PARENCHYMAL PATTERN: (VD) - The breast(s) demonstrate(s) extremely dense parenchyma, limiting the sen sitivity of mammography. BI-RADS CATEGORY: (1) - 1 Mammogram [id number] 1 year screening LATERALITY: (B)
== END 2023-02-22 09:53 | disposition home or self-care (01) ==
LOC: DI.S 09:52
PROVIDERS: ATTEND Obstetrics & Gynecology
DX: Z12.31 Encounter for screening mammogram for malignant neoplasm of breast (principal); R92.343 Mammographic extreme density, bilateral breasts